=== PATIENT | female | born 1940 | race Caucasian/White ===

== ENCOUNTER 2021-02-20 10:14 | Emergency (ER) | payer MEDICARE ==
[~2021-02-20 10:14] MED LIST: GABAPENTIN800 MG PO; HYDROCODON-ACE1 EAC6 PO; MELOXICAM15 MG PO; TRAMADOL HCL50 MG PO; VOLTAREN100 GM TOP
[2021-02-20 13:01] LABS: BASOPHIL 0.3 % (0-2); EOSINOPHIL 0.6 % (0-7); LYMPHOCYTE 19.6 % (15-48); MCH 31.6 pg (25.0-31.0); MCHC 33.3 g/dL (32.0-36.0); MCV 94.7 fL (78.0-100.0); MONOCYTE 9.6 % (0-12); MPV 9.7 fL (6.0-9.5); NEUTROPHIL 69.4 % (41-80); NRBC 0; PLT 190 K/uL (150-400); RBC 4.75 M/uL (4.20-5.40); WBC 12.3 K/uL (4.0-10.5)
[2021-02-20 13:40] LABS: BUN/CREAT RATIO (CALC) 28.2 RATIO; CREATININE 0.78 mg/dL (0.51-0.95); POTASSIUM 4.3 mmol/L (3.5-5.1)
[2021-03-08] MEDS ORDERED: TRAMADOL HCL50 MG PO (08:49)
[2021-03-08] MEDS ORDERED: NEURONTIN300 MG PO (08:54)
[2021-05-29] MEDS ORDERED: TRAMADOL HCL50 MG PO (08:47)
== END 2021-02-20 14:32 | disposition home or self-care (01) ==
LOC: FER 10:14
PROVIDERS: Nurse Practitioner Family
DX: R60.0 Localized edema (principal); M25.562 Pain in left knee; J45.909 Unspecified asthma, uncomplicated
CPT/HCPCS: 36415; 73564; 80048; 85025